=== PATIENT | female | born 1940 | race Hispanic/Latino ===

== ENCOUNTER → 2017-12-14 | Outpatient (CLI) | payer MEDICARE | END | disposition home or self-care (01) | LOC: RAH 12:00 | PROVIDERS: ATTEND Orthopaedic Surgery | DX: M75.101 Unspecified rotator cuff tear or rupture of right shoulder, not specified as traumatic (principal); M12.811 Other specific arthropathies, not elsewhere classified, right shoulder; M25.411 Effusion, right shoulder | CPT/HCPCS: 73221 ==

== ENCOUNTER 2020-03-14 11:55 | Day surgery (SDC) | payer MEDICARE ==
[2020-03-13 13:31] VITALS: BP_SYST 165; BP_SYST 194; BP_DIAS 80; BP_DIAS 87
[2020-03-14] VITALS (9 sets, daily range): BP systolic 145–212; BP diastolic 60–89
[~2020-03-14] VITALS: Ht 162.6 cm; Wt 70.9 kg
[~2020-03-14 11:55] MED LIST: FLUO20CA30 PO; HYDR-4154 PO; LEVO50TA11 PO; LOSA25TA41 PO; METO200T49 PO; OMEP20CA12 PO
[2020-03-14] MEDS ORDERED: CALC3.8S NS (12:44)
[2020-03-14] MEDS ORDERED: IBAN150T21 PO (12:44)
[2020-03-14] MEDS ORDERED: IOPAMIDOL 10 ML VIAL ONE (12:56)
[2020-03-14] MEDS ORDERED: LIDOCAINE HCL MPF 1% 5ML VIAL ONE (12:56)
[2020-03-14] MEDS ORDERED: DEXAMETHASONE SOD PHOSPHATE 4 MG/ML 1ML VIAL ONE ×2 (13:05→13:10)
[2020-03-14] MEDS: HYDRALAZINE HCL 20 MG/ML VIAL IV SCH ×2 (16:15→16:22)
== END 2020-03-14 16:50 | disposition home or self-care (01) ==
LOC: DAH 11:55
PROVIDERS: ATTEND Family Medicine Sports Medicine
DX: S32.020A Wedge compression fracture of second lumbar vertebra, initial encounter for closed fracture (principal); M51.16 Intervertebral disc disorders with radiculopathy, lumbar region; S22.080A Wedge compression fracture of T11-T12 vertebra, initial encounter for closed fracture; M54.05 Panniculitis affecting regions of neck and back, thoracolumbar region; G89.29 Other chronic pain; I10 Essential (primary) hypertension; E03.9 Hypothyroidism, unspecified; M85.80 Other specified disorders of bone density and structure, unspecified site; Z79.899 Other long term (current) drug therapy; X58.XXXA Exposure to other specified factors, initial encounter; Y93.89 Activity, other specified; Y92.89 Other specified places as the place of occurrence of the external cause; Y99.8 Other external cause status; Z20.828 Contact with and (suspected) exposure to other viral communicable diseases
CPT/HCPCS: 62323; A4215 ×3; A4216; A4221; A4222; A4223; A4606; A4615; A4657; A4663; C9803; J0360; J1100; J3490; Q9966; U0003; 62320; 77003